=== PATIENT | male | born 1965 | race African-American/Black ===

== ENCOUNTER 2019-02-28 07:45 | Day surgery (SDC) | payer OTHER ==
[~2019-02-28] VITALS: Ht 180.3 cm; Wt 72.9 kg
[~2019-02-28 07:45] MED LIST: ASPI81TA85 PO; CONC27TA4 PO; LANTINJ4 SC; METF500T13 PO; PROPOFOL 200 MG/20 ML VIAL As Ordered ONE
[2019-02-28] MEDS ORDERED: VICT18IN SC (08:25)
[2019-02-28] MEDS ORDERED: WELC3.75 PO (08:25)
[2019-02-28] MEDS ORDERED: LATU20TA PO (08:25)
[2019-02-28] MEDS ORDERED: LIPI80TA PO (08:25)
[2019-02-28] MEDS ORDERED: CHOL100029 PO (08:25)
[2019-02-28] MEDS ORDERED: TRAZ-252 PO (08:25)
[2019-02-28] MEDS ORDERED: NS 1,000 ML IV ONE (09:00)
[2019-02-28] MEDS ORDERED: PHENYLephrine HCL 500 MCG/5 ML (100MCG/ML) SYRINGE (J2370) As Ordered ONE (09:03)
--- NOTE | 2019-02-28 09:28 | ROOR ---
Patient Name: Manoj Hatch Procedure Date: 02/28/2019 8:43 AM Date of : 1965 Age: 54 Room: [facility] Gender: Male Note Status: Finalized Procedure: Colonoscopy Indications: Screening for colorectal malignant neoplasm Providers: Alexis Sierra MD Referring MD: KUNAL LUNA MD Requesting Provider: Medicines: Monitored Anesthesia Care Complications: No immediate complications. Procedure: Pre-Anesthesia Assessment: - Prior to the procedure, a History and Physical was performed, and patient medications and allergies were reviewed. The patient is competent. The risks and benefits of the procedure and the sedation options and risks were discussed with the patient. All questions were answered and informed consent was obtained. Patient identification and proposed procedure were verified by the physician, the nurse and the anesthesiologist in the procedure room. Mental Status Examination: alert and oriented. Airway Examination: normal oropharyngeal airway and neck mobility. Respiratory Examination: clear to auscultation. CV Examination: normal. Prophylactic Antibiotics: The patient does not require prophylactic antibiotics. Prior Anticoagulants: The patient has taken no previous anticoagulant or antiplatelet agents. ASA Grade Assessment: II - A patient with mild systemic disease. After reviewing the risks and benefits, the patient was deemed in satisfactory condition to undergo the procedure. The anesthesia plan was to use monitored anesthesia care (MAC). Immediately prior to administration of medications, the patient was re-assessed for adequacy to receive sedatives. The heart rate, respiratory rate, oxygen saturations, blood pressure, adequacy of pulmonary ventilation, and response to care were monitored throughout the procedure. The physical status of the patient was re-assessed after the procedure. The Colonoscope was introduced through the anus and advanced to the terminal ileum, with identification of the appendiceal orifice and IC valve. The colonoscopy was performed without difficulty. The patient tolerated the procedure well. The quality of the bowel preparation was fair. The terminal ileum, ileocecal valve, appendiceal orifice, and rectum were photographed. Scope insertion time was 4 minutes. Scope withdrawal time was 10 minutes. The total duration of the procedure was 14 minutes. Findings: The perianal and digital rectal examinations were normal. The terminal ileum appeared normal. A 5 mm polyp was found in the ascending colon. The polyp was sessile. The polyp was removed with a jumbo cold forceps. Resection and retrieval were complete. Verification of patient identification for the specimen was done by the physician and nurse using the patient's name, date and medical record number. Estimated blood loss was minimal. Two sessile polyps were found in the transverse colon. The polyps were 8 to 10 mm in size. These polyps were removed with a cold snare. Resection and retrieval were complete. A 10 mm polyp was found in the rectum. The polyp was sessile. The polyp was removed with a cold snare. Resection and retrieval were complete. To prevent bleeding after the polypectomy, two hemostatic clips were successfully placed. There was no bleeding at the end of the procedure. Non-bleeding external and internal hemorrhoids were found during retroflexion. The hemorrhoids were medium-sized. Impression: - Preparation of the colon was fair. - The examined portion of the ileum was normal. - One 5 mm polyp in the ascending colon, removed with a jumbo cold forceps. Resected and retrieved. - Two 8 to 10 mm polyps in the transverse colon, removed with a cold snare. Resected and retrieved. - One 10 mm polyp in the rectum, removed with a cold snare. Resected and retrieved. Clips were placed. - Non-bleeding external and internal hemorrhoids. Recommendation: - Patient has a contact number available for emergencies. The signs and symptoms of potential delayed complications were discussed with the patient. Return to normal activities tomorrow. Written discharge instructions were provided to the patient. - High fiber diet. - Continue present medications. - Await pathology results. - Repeat colonoscopy in 1 year because the bowel preparation was poor and for surveillance based on pathology results. - Telephone GI clinic for pathology results in 2 weeks. - Return to primary care physician. Alexis Sierra MD Alexis Sierra MD 02/28/2019 9:28:18 AM Electronically signed by Alexis Sierra MD Number of Addenda: 0 Note Initiated On: 02/28/2019 8:43 AM Estimated Blood Loss: Estimated blood loss: none.
[2019-02-28 09:35] VITALS: BP 138/91
== END 2019-02-28 09:55 | disposition home or self-care (01) ==
LOC: M OPP 07:45
PROVIDERS: ATTEND Internal Medicine Gastroenterology
DX: Z12.11 Encounter for screening for malignant neoplasm of colon (principal); Z12.2 Encounter for screening for malignant neoplasm of respiratory organs; K64.8 Other hemorrhoids; K62.1 Rectal polyp; D12.3 Benign neoplasm of transverse colon; E11.9 Type 2 diabetes mellitus without complications; G47.30 Sleep apnea, unspecified; F17.210 Nicotine dependence, cigarettes, uncomplicated; Z79.4 Long term (current) use of insulin; Z79.82 Long term (current) use of aspirin; Z79.899 Other long term (current) drug therapy
CPT/HCPCS: 45380; 45385; 88305; 88341; 88342; J2370

== ENCOUNTER → 2019-05-13 | Outpatient (CLI) | payer OTHER ==
[~2019-05-13] MED LIST changes: +CHOL100029 PO; +LATU20TA PO; +LIPI80TA PO; -PROPOFOL 200 MG/20 ML VIAL As Ordered ONE; +TRAZ-252 PO; +VICT18IN SC; +WELC3.75 PO
[2019-05-13 12:27] LABS: BLOOD UREA NITROGEN 11 MG/DL (7-18); CREATININE FOR GFR 0.88 MG/DL (0.70-1.30); GLOMERULAR FILTRATION RATE > 60.0 (>56)
== END ==
LOC: M LRY 09:17
PROVIDERS: ATTEND Internal Medicine Gastroenterology
DX: K59.04 Chronic idiopathic constipation (principal); C7A.026 Malignant carcinoid tumor of the rectum

== ENCOUNTER → 2019-05-16 | Outpatient (CLI) | payer OTHER ==
[~2019-05-16] MED LIST changes: +GASTROGRAFIN SOLUTION 30ML (Q9963) As Ordered ONE; +ISOVUE-370 76% 100ML VIAL (Q9967) As Ordered ONE
--- NOTE | 2019-05-16 18:12 | REP ---
Clinical: Rectal carcinoma. Technique: Axial contrast enhanced images from the lung bases to the pubic symphysis with coronal and sagittal re-formations using oral (per protocol) and 100 ml Isovue 370 intravenous contrast material. Delayed images of the abdomen obtained. Comparison: None. Findings: Lung bases are clear. Visualized heart and pericardium normal. Fatty infiltration to the liver noted. 1 cm cyst in the right hepatic lobe and small scattered subcentimeter cysts identified. Spleen, pancreas, gallbladder, bilateral adrenal glands and kidneys are normal. The enteric system is without obstruction or acute inflammatory process. The rectosigmoid appears relatively normal by CT evaluation. No pericolonic stranding or obvious adenopathy. No ascites. No free air. Further evaluation of the pelvis demonstrates thyromegaly with mass effect on the base of the bladder. No pelvic fluid. Abdominal aorta and vasculature without aneurysm or dissection. Musculoskeletal structures demonstrate age-related changes without focal aggressive abnormality noted. Impression: 1. Hepatic steatosis and small hepatic cyst suspected which may be confirmed by ultrasound. 2. Prostatomegaly. 3. No further obvious acute process. No ascites. No adenopathy. No inflammatory stranding. Electronically Signed by Kris Gonzalez MD 05/16/2019 06:03 P
== END ==
LOC: M RAD 16:03
PROVIDERS: ATTEND Internal Medicine Gastroenterology
DX: C7A.026 Malignant carcinoid tumor of the rectum (principal); K59.04 Chronic idiopathic constipation
CPT/HCPCS: 74177; Q9963; Q9967

== ENCOUNTER → 2021-02-08 | Outpatient (CLI) | payer OTHER ==
[~2021-02-08] MED LIST changes: -ASPI81TA85 PO; +ASPI81TA86 PO; +BUPR15TA PO; -GASTROGRAFIN SOLUTION 30ML (Q9963) As Ordered ONE; +HYDR-3363 PO; -ISOVUE-370 76% 100ML VIAL (Q9967) As Ordered ONE; +TADA20TA; +ZOLO100T PO
--- NOTE | 2021-02-08 13:41 | RADONC.CN ---
Radiation Oncology Hx/Consult Radiation Oncology Consult Date of Service: Feb 08, 2021 Pt Identifier Manoj Hatch is a 56 year old male with a short history of exogenous testosterone use and now recently diagnosed favorable intermediate risk prostate cancer cT1c Suk[place] 3+4=7 (06/01 cores+) PSA 5.7. He has elected to pursue RT as primary treatment and is here to discuss his options. Diagnosis/Treatment History Oncologic History Followed by the [facility] for history of ED/hypogonadism PSA trend 12/03/19 3.6 12/01/20 5.7 (on androgel) TRUS biopsy [place] 3+4=7 (06/01 cores+) Left mid IPSS 19 QUIQUE 7 Interval History Here with his supportive . He reports moderate urinary bother, mostly in the frequency domain. Has some burning with urination from time to time, this has been going on for years. Has regular bowel movements, no bleeding per rectum. Had a history of hemorrhoids, which required surgical intervention when he was in the service. He has moderate/severe ED, has tried PDEi, was considering prosthesis. Initially wanted surgery, but upon doing his own research has decided on RT. Past Medical History: Asthma Anxiety PTSD DM HPL HTN Past Surgical History: Hemorrhoidopexy ~ Family History: No family cancer history Social History: 16 pack year current smoker (0.5 ppd) Does not drink Allergies / Meds Allergies: Coded Allergies: No Known Allergies (Unverified , 02/14/19) Home Meds Reported Medications Sertraline Hcl (Zoloft) 100 Mg Tablet, 100 MG PO DAILY for 30 Days, #30 TAB 02/08/21 Hydroxyzine HCl (Hydroxyzine HCl) 25 Mg Tablet, 25 MG PO BID for anxiety for 30 Days, #60 TAB 02/08/21 Bupropion HCl (Wellbutrin Sr) 150 Mg Tab.sr.12h, 150 MG PO BID for 30 Days, #60 TAB 02/08/21 Tadalafil (Tadalafil) 20 Mg Tablet 02/08/21 Vitamin D (Vitamin D3) 1,000 Unit Tablet, 1000 UNITS PO, TAB 02/28/19 Liraglutide (Victoza 2-Raheem) 0.6 Mg/0.1 Ml Pen.injctr, 1.8 MG SC DAILY, INJ 02/28/19 Trazodone HCl (Trazodone HCl) 50 Mg Tablet, 1 TAB PO QPM for 30 Days, #30 TAB 02/28/19 Atorvastatin Calcium (Lipitor) 80 Mg Tablet, 1 TAB PO DAILY for 30 Days, #30 TAB 02/28/19 Lurasidone Hydrochloride (Latuda) 20 Mg Tablet, 1 TAB PO QPM for 30 Days, #30 TAB 02/28/19 Colesevelam HCl (Welchol) 3.75 Gm Powd.pack, 3.75 GRAM PO DAILY for 30 Days, #30 PKT dissolve in water 02/28/19 Methylphenidate HCl (Concerta) 27 Mg Tab.er.24, 27 MG PO DAILY MDD 1 Tablet(s) for 30 Days, #30 TAB 02/14/19 Aspirin (Aspir 81) 81 Mg Tablet.dr, 81 MG PO DAILY, #30 TAB 02/14/19 Insulin Glargine,Hum.rec.anlog (Lantus Solostar) 100 Unit/1 Ml Insuln.pen, 24 UNITS SC QHS, INJ 02/14/19 Metformin HCl (Metformin HCl) 500 Mg Tablet, 500 MG PO BID, TAB 02/14/19 Review of Systems Constitutional: Denies: Fatigue Eyes: Denies: Pain HEENT: Denies: Head Aches Skin: Denies: Rash Pulmonary: Denies: Dyspnea, Cough Cardiovascular: Denies: Chest Pain Gastrointestinal: Denies: Hematochezia Genitourinary: Reports: Dysuria, Frequency; Denies: Incontinence, Hematuria Hematologic: Denies: Bruising Endocrine: Denies: Polydipsia, Cold Intolerance Musculoskeletal: Denies: Neck pain, Back pain Neurological: Denies: Weakness, Numbness Psych: Reports: Mood Normal Vital Signs Ht 66" Wt 155 lbs BMI 25 T 98 P 77 RR 18 BP 115/78 O2 98% Pain 0 Fatigue 0 General Exam: Alert, Cooperative, No Acute Distress Eye Exam: PERRLA, EOMI ENT EXAM: Atraumatic Neck Exam: Supple Chest Exam: Clear to auscultation Heart Exam: Rate Normal Abdomen Exam: Soft Male Exam: Normal Prostate, Normal Sphincter Tone Extremity Exam: Negative: Edema Skin Exam: Nl turgor and temperature Neuro Exam: Normal Gait, Normal Speech, Cranial Nerves 3-12 NL Psych Exam: Mental status NL Diagnostic and Laboratory Diagnostic Review Radiologic images, relevant labs and pathology reports were personally reviewed and discussed with Mr. Hatch. Assessment and Plan Impression Mr. Hatch is a 56 year old male with a short history of exogenous testosterone use and now recently diagnosed favorable intermediate risk prostate cancer cT1c [place] 3+4=7 (1/12 cores+) PSA 5.7. He has elected to pursue RT as primary treatment and is here to discuss his options. Stage Favorable intermediate risk prostate cancer [id number] [place] 3+4=7 (1/12 cores+) PSA 5.7 stage IIB Performance Status ECOG 0 Plan We had an extensive discussion with Mr. Hatch regarding the diagnosis at hand and available therapeutic options. He has favorable intermediate risk disease of a low volume on biopsy. He has pre-existing ED and moderate urinary bother. He has already decided against RP or as options and would like to proceed with RT I discussed that there are many viable RT options for disease such as his including EBRT, HDR and LDR brachytherapy. He is not interested in brachytherapy. For EBRT I offered SBRT 36.25 Gy in 5 fractions versus 70 Gy in 28 fractions. The former is more convenient, the latter better vetted in a RCT fashion compared to historical dose/fractionation scheduled. Both regimens are well- tolerated and have excellent comparative clinical outcomes in the favorable intermediate risk setting. He elected to pursue 70 Gy in 28 fractions. I also discussed SpaceOAR/fiducial implant, the former to protect the rectum and mitigate the risk of acute and late rectal toxicities, the latter to improve daily localization for treatment. He agreed to proceed with the implants. Will book the next available date. We discussed the logistics of receiving radiation therapy in detail including the need for a 1-time planning session. This can occur ~2 weeks post implant. We reviewed the side effects of RT, irritative voiding symptoms, worsening of ED in time, and acute and late GI toxicity, as well as self-limited fatigue. After discussing the risks, benefits and alternatives to radiation therapy, Mr. Hatch was amenable to pursuing radiotherapy. All questions were answered to the patient's satisfaction. We instructed the patient that if there were any questions,concerns or changes in clinical status in the interim to contact us. Recommendations 70 Gy in 28 fractions with VMAT SpaceOAR/fiducial implant Simulation pending implant Billing Statement Total time of [47] minutes was spent preparing for the visit [3], obtaining HPI [7], examining the patient [2], reviewing diagnostic tests [2], discussing management options [20], coordinating care [3], and writing this note [10]. FRANCISCO BUSTOS MD Feb 08, 2021 13:41
== END ==
LOC: M ONCR 10:06
PROVIDERS: ATTEND General Practice
DX: C61 Malignant neoplasm of prostate (principal); E11.9 Type 2 diabetes mellitus without complications; E78.5 Hyperlipidemia, unspecified; F17.210 Nicotine dependence, cigarettes, uncomplicated; F43.12 Post-traumatic stress disorder, chronic; I10 Essential (primary) hypertension; J45.909 Unspecified asthma, uncomplicated; Z79.82 Long term (current) use of aspirin; Z79.4 Long term (current) use of insulin; Z79.899 Other long term (current) drug therapy

== ENCOUNTER → 2021-03-03 | Outpatient (CLI) | payer OTHER ==
[~2021-03-03] MED LIST changes: +CIPR250T3 PO; +LIDOCAINE 2% MDV 20ML VIAL XX ONE; +LIDOCAINE VISCOUS 2% SOLN 15ML UDC XX ONE; +LORA2TAB14 PO
--- NOTE | 2021-03-03 10:22 | ROOPDOC ---
[facility] Report Of Operation Report of Operation [facility] Radiation Oncology SpaceOAR & fiducial marker procedure note Name: Manoj Hatch D.O.B: [birth year] Procedure diagnosis: C61.0 Prostate cancer Procedure date/time: 03/03/2021 Physician: Francisco Bustos MD Implant(s): Fiducials (3 seeds per kit): Qfix [id number] Lot# [id number] Exp 03/20/2023 Qty 1 SpaceOAR: [id number] Lot# [id number] Exp 07/27/22 Qty 1 Description of procedure: Informed consent for placement of SpaceOAR and fiducial marker seeds (3) was obtained pre-procedure. A timeout was completed. The patient was placed in the high lithotomy position and a rectal exam with 2% viscous lidocaine was completed. The rectal vault was empty of stool. A chlorhexidine prep of the perineal skin was completed. The trans-rectal ultrasound probe was introduced, the prostate and the rectal bulb were well visualized. 2% lidocaine was infiltrated in the skin and soft tissues of the perineum via a 23 Ga spinal needle under ultrasound guidance. 12cc of local was used. Patient tolerated the block well. Next, fiducial marker seeds were placed via pre-loaded 18 Ga needles under ultrasound guidance. 1 seed was placed in the right base and apex, respectively. 1 seed was placed at the left mid gland base. A hydro-dissection of the space between the prostate and rectum was conducted by locating Denonvilliers fascia and injecting 10 cc of isotonic saline through an 18 Ga needle into the potential space there to develop a plane for SpaceOAR implant. Once the hydro-dissection was complete, the needle was withdrawn to mid-gland and 2 cc of 2% lidocaine were injected into the space. The implant needle was then checked in the sagittal and transverse planes for optimal position and once verified, the SpaceOAR implant was placed. The implant was noted to have excellent positioning from base to near-apex. The needle was withdrawn and the ultrasound probe was removed from the rectum. Post procedure vital signs were WNL. The patient tolerated the procedure well with minimal discomfort. EBL: <3cc Disposition: Simulation for radiation therapy will occur in the next 1-2 weeks The patient will complete antibiotic prophylaxis this evening FRANCISCO BUSTOS MD Mar 03, 2021 10:22
== END ==
LOC: M ONCR 08:57
PROVIDERS: ATTEND General Practice
DX: C61 Malignant neoplasm of prostate (principal)
CPT/HCPCS: 55874; 55876; A4648; C1889

== ENCOUNTER 2021-03-17 09:13 | Outpatient (RCR) | payer OTHER ==
[~2021-03-17 09:13] MED LIST changes: -LIDOCAINE 2% MDV 20ML VIAL XX ONE; -LIDOCAINE VISCOUS 2% SOLN 15ML UDC XX ONE
== END 2021-03-20 ==
LOC: M ONCR 09:13
PROVIDERS: ATTEND General Practice
DX: C61 Malignant neoplasm of prostate (principal)

== ENCOUNTER → 2021-04-19 | Outpatient (RCR) | payer OTHER ==
[~2021-04-19] MED LIST changes: +COLA100C5 PO; +SENN-80 PO; +TAMS1CAP17 PO
== END ==
LOC: M ONCR 03-21 13:34
PROVIDERS: ATTEND General Practice
DX: C61 Malignant neoplasm of prostate (principal)

== ENCOUNTER 2021-05-18 13:00 | Outpatient (RCR) | payer OTHER ==
[~2021-05-18 13:00] MED LIST changes: -COLA100C5 PO; -SENN-80 PO
[2021-05-23] MEDS ORDERED: TAMS1CAP17 PO (15:06)
[2021-05-23] MEDS ORDERED: COLA100C5 PO (15:07)
[2021-05-23] MEDS ORDERED: SENN-80 PO (15:08)
== END 2021-05-20 ==
LOC: M ONCR 13:00
PROVIDERS: ATTEND General Practice
DX: C61 Malignant neoplasm of prostate (principal)

== ENCOUNTER 2021-06-01 13:00 | Outpatient (RCR) | payer OTHER ==
[~2021-06-01 13:00] MED LIST changes: +COLA100C5 PO; +SENN-80 PO
== END 2021-06-20 ==
LOC: M ONCR 13:00
PROVIDERS: ATTEND General Practice
DX: C61 Malignant neoplasm of prostate (principal); R35.1 Nocturia; K59.00 Constipation, unspecified

== ENCOUNTER → 2021-10-06 | Outpatient (CLI) | payer OTHER ==
[~2021-10-06] MED LIST changes: +LEVO500T4 PO
== END ==
LOC: M ONCR 10:23
PROVIDERS: ATTEND General Practice
DX: Z08 Encounter for follow-up examination after completed treatment for malignant neoplasm (principal); C61 Malignant neoplasm of prostate; N52.9 Male erectile dysfunction, unspecified; F17.210 Nicotine dependence, cigarettes, uncomplicated; Z79.84 Long term (current) use of oral hypoglycemic drugs; Z79.899 Other long term (current) drug therapy; Z92.3 Personal history of irradiation

== ENCOUNTER → 2021-10-08 | Outpatient (CLI) | payer OTHER | LOC: M LABSMTC 10:12 | PROVIDERS: ATTEND General Practice | DX: Z20.822 Contact with and (suspected) exposure to COVID-19 (principal) ==

== ENCOUNTER → 2022-04-26 | Outpatient (CLI) | payer OTHER ==
[~2022-04-26] MED LIST changes: +COLE3.755 PO; +LEVO1TAB39 PO; -LEVO500T4 PO; -WELC3.75 PO
== END ==
LOC: M ONCR 10:14
PROVIDERS: ATTEND General Practice
DX: C61 Malignant neoplasm of prostate (principal); F17.210 Nicotine dependence, cigarettes, uncomplicated; Z79.82 Long term (current) use of aspirin; Z79.4 Long term (current) use of insulin; Z79.84 Long term (current) use of oral hypoglycemic drugs; Z79.899 Other long term (current) drug therapy; Z92.3 Personal history of irradiation; Z96.89 Presence of other specified functional implants; Z97.8 Presence of other specified devices
CPT/HCPCS: 36415; 84153; G0463

== ENCOUNTER 2022-11-17 11:22 | Day surgery (SDC) | payer OTHER ==
[~2022-11-17] VITALS: Ht 177.8 cm; Wt 68.5 kg
[~2022-11-17 11:22] MED LIST changes: +ASPI81TA27 PO; +LIDOCAINE 2% 100MG/5ML SDV (FOR ANES.) As Ordered ONE; +NORV5TAB PO; +NS 1,000 ML IV ONE; +SENN-186 PO; -SENN-80 PO; +VITA100093 PO; +propofoL 200 MG/20 ML VIAL As Ordered ONE
[2022-11-17 12:35] VITALS: TEMP 97.2
[2022-11-17 13:00] VITALS: BP 142/86; O2SAT 100
== END 2022-11-17 13:22 | disposition home or self-care (01) ==
LOC: M OPP 11:22
PROVIDERS: ATTEND Surgery
DX: Z12.11 Encounter for screening for malignant neoplasm of colon (principal); Z86.010 Personal history of colon polyps; K55.20 Angiodysplasia of colon without hemorrhage; K63.5 Polyp of colon; Z85.040 Personal history of malignant carcinoid tumor of rectum; Z85.46 Personal history of malignant neoplasm of prostate; Z87.891 Personal history of nicotine dependence; G47.33 Obstructive sleep apnea (adult) (pediatric); Z79.02 Long term (current) use of antithrombotics/antiplatelets; Z79.82 Long term (current) use of aspirin; Z53.8 Procedure and treatment not carried out for other reasons

== ENCOUNTER → 2023-06-01 | Outpatient (CLI) | payer OTHER ==
[~2023-06-01] MED LIST changes: -LIDOCAINE 2% 100MG/5ML SDV (FOR ANES.) As Ordered ONE; -NS 1,000 ML IV ONE; -propofoL 200 MG/20 ML VIAL As Ordered ONE
== END ==
LOC: M ONCR 14:43
PROVIDERS: ATTEND General Practice
DX: C61 Malignant neoplasm of prostate (principal); Z96.0 Presence of urogenital implants; F17.210 Nicotine dependence, cigarettes, uncomplicated; Z71.2 Person consulting for explanation of examination or test findings; Z79.4 Long term (current) use of insulin; Z79.84 Long term (current) use of oral hypoglycemic drugs; Z79.899 Other long term (current) drug therapy; Z92.29 Personal history of other drug therapy; Z92.3 Personal history of irradiation

== ENCOUNTER → 2025-04-03 | Outpatient (CLI) | payer OTHER ==
[~2025-04-03] MED LIST changes: +ATOR-398 PO; -LIPI80TA PO
== END ==
LOC: M RAD 15:21
PROVIDERS: ATTEND Nurse Practitioner Family
DX: Z87.891 Personal history of nicotine dependence (principal)